=== PATIENT | female | born 1995 | race Caucasian/White ===

== ENCOUNTER 2019-07-02 05:09 | Emergency (ER) | payer OTHER ==
[~2019-07-02] VITALS: Ht 162.6 cm; Wt 52.0 kg
[2019-07-02] MEDS ORDERED: SODIUM CHLORIDE 0.9% 1,000 ML IV ONE (06:17)
[2019-07-02] MEDS ORDERED: KETOROLAC 30MG/ML VIAL IV STA (06:17)
[2019-07-02] MEDS ORDERED: METOCLOPRAMIDE HCL 10MG/2ML VIAL IV ONE (06:30)
[2019-07-02 08:10] VITALS: BP 90/63
== END 2019-07-02 09:08 | disposition home or self-care (01) ==
LOC: ER 05:09
DX: R51 Headache (principal); G35 Multiple sclerosis
CPT/HCPCS: 96374; 96375; 99283; J1885; J2765; J7030; Z7610

== ENCOUNTER 2019-08-28 21:26 | Emergency (ER) | payer OTHER ==
[~2019-08-28] VITALS: Ht 162.6 cm; Wt 53.0 kg
[2019-08-28 23:44] LABS: CLARITY URINE CLEAR (CLEAR); COLOR URINE YELLOW (YELLOW); KETONES URINE NEGATIVE (NEGATIVE); LEUKOCYTE ESTERASE URINE NEGATIVE (NEGATIVE); NITRITE URINE NEGATIVE (NEGATIVE); OCCULT BLOOD URINE NEGATIVE (NEGATIVE); PROTEIN URINE NEGATIVE (NEGATIVE); SPECIFIC GRAVITY URINE 1.026 (1.005-1.030)
[2019-08-29] MEDS ORDERED: ACETAMINOPHEN 325MG TABLET PO ONE (00:15)
[2019-08-29 00:39] LABS: BASOPHILS % 0.7 % (0.0-2.0); EOSINOPHILS % 1.1 % (0.0-5.0); HEMATOCRIT. 40.1 % (36.0-48.0); HEMOGLOBIN. 13.8 g/dL (12.0-16.0); LYMPHOCYTES % 35.2 % (20.0-50.0); MEAN CORPUSCULAR HEMOGLOBIN 32.8 pg (28.0-32.0); MEAN CORPUSCULAR VOLUME 95.7 fL (81.0-99.0); MEAN PLATELET VOLUME 10.3 fl (7.4-10.4); MONOCYTES % 6.8 % (2.0-8.0); NEUTROPHILS % 56.2 % (40.0-76.0); PLATELET 184 x1000/uL (130-400); RED BLOOD CELL COUNT 4.19 mill/uL (4.2-5.4)
[2019-08-29 00:43] LABS: CHLORIDE 108 mEq/L (98-107)
[2019-08-29 00:50] LABS: HCG SCREEN NEGATIVE
[2019-08-29] MEDS ORDERED: METRONIDAZOLE 500MG TABLET PO ONE (01:00)
[2019-08-29] MEDS ORDERED: CEFTRIAXONE SODIUM 250 MG/VIAL IM ONE (01:00)
[2019-08-29] MEDS ORDERED: AZITHROMYCIN 500 MG TABLET PO ONE (01:00)
[2019-08-29] MEDS ORDERED: LIDOCAINE HCL 1% 20ML VIAL (Pyxis) INJ INFIL ONE (02:00)
[2019-08-29 02:44] VITALS: BP 118/68
== END 2019-08-29 03:12 | disposition home or self-care (01) ==
LOC: ER 21:26
DX: N73.9 Female pelvic inflammatory disease, unspecified (principal); R10.31 Right lower quadrant pain; N89.8 Other specified noninflammatory disorders of vagina; F12.10 Cannabis abuse, uncomplicated; Z87.440 Personal history of urinary (tract) infections
CPT/HCPCS: 36415; 80053; 81003; 83690; 84703; 85025; 87210; 87491; 87591; 96372; 99284; J0696; J3490; Z7610

== ENCOUNTER 2019-09-24 13:27 | Emergency (ER) | payer OTHER ==
[~2019-09-24] VITALS: Ht 170.2 cm; Wt 51.0 kg
[2019-09-24 13:41] VITALS: BP 104/74
[2019-09-24] MEDS ORDERED: LORAZEPAM 0.5MG TABLET PO ONE (14:45)
== END 2019-09-24 15:37 | disposition home or self-care (01) ==
LOC: ER 13:27
DX: F41.9 Anxiety disorder, unspecified (principal); G35 Multiple sclerosis
CPT/HCPCS: 99284